=== PATIENT | male | born 1990 | race Hispanic/Latino ===

== ENCOUNTER 2018-03-01 05:34 | Emergency (ER) | payer SELFPAY ==
[2018-03-01 07:14] LABS: Absolute Lymphocytes (CBC) 1.6 K/uL (0.7-4.9); Absolute Monocytes 0.6 K/uL (0.1-1.3); Absolute Neutrophil 4.8 K/uL (1.8-8.0); Basophils % 0.7 % (0-1.3); Eosinophils % 10.9 % (0-4.4); Hematocrit 46.9 % (39.6-49.0); MCH 28.8 pg (27.0-35.0); MCV 86.3 fL (80-100); Monocytes % 7.2 % (3.3-12.3); RBC Red Blood Cell Count 5.43 M/uL (4.33-5.43)
[2018-03-01 07:29] LABS: Bicarbonate 29 mEq/L (21-31); Glucose Level 98 mg/dL (65-120); Sodium Level 139 mEq/L (135-145)
[2018-03-01 07:30] LABS: BUN Blood Urea Nitrogen 17 mg/dL (6-20)
[2018-03-01 07:40] LABS: CKMB Creatine Kinase MB 2.4 ng/ml (0.3-4.0)
--- NOTE | 2018-03-01 07:54 | RAD REPORT ---
EXAM DESCRIPTION: CT - Head Brain Wo Cont - 03/01/2018 7:23 am CLINICAL HISTORY: Left arm numbness COMPARISON: None. TECHNIQUE: Computed axial tomography of the head was obtained. IV contrast was not requested. All CT scans are performed using dose optimization technique as appropriate and may include automated exposure control or mA/KV adjustment according to patient size. FINDINGS: An intracranial bleed is not seen . The ventricles are normal in caliber. No extra-axial fluid collection is noted. Fluid within the sinuses/ mastoids is not seen. IMPRESSION: No acute intracranial abnormality is seen. If patient's symptoms persist MRI of the bra in would be recommended.
--- NOTE | 2018-03-01 08:21 | ER ---
Nurse's Notes [facility] Name: Demond Rodriguez Age: 27 yrs Sex: Male : 1990 Arrival Date: 03/01/2018 Time: 05:36 Bed 2 Private MD: Diagnosis: Palpitations Presentation: 03/01 05:52 Presenting complaint: Patient states: Reports that at 0100 this morning, he started ea having palpitations, facial numbness and left arm numbness. Transition of care: patient was not received from another setting of care. Onset of symptoms was March 01, 2018. Care prior to arrival: None. 05:52 Method Of Arrival: Ambulatory ea 05:52 Acuity: JOSH 3 ea Triage Assessment: 05:52 General: Appears in no apparent distress. Behavior is calm, cooperative, appropriate ea for age. Pain: Denies pain. EENT: No signs and/or symptoms were reported regarding the EENT system. Neuro: Level of Consciousness is awake, alert, obeys commands, Oriented to person, place, time, situation. Cardiovascular: Heart tones present Patient's skin is warm and dry. Respiratory: Airway is patent Respiratory effort is even, unlabored, Respiratory pattern is regular, symmetrical, Breath sounds are clear bilaterally. GI: No signs and/or symptoms were reported involving the gastrointestinal system. : No signs and/or symptoms were reported regarding the genitourinary system. Derm: Skin is pink, warm \T\ dry. Musculoskeletal: Range of motion: intact in all extremities. Historical: - Allergies: 06:00 No Known Allergies; ea - Home Meds: 06:00 None [Active]; ea - PMHx: 06:00 None; ea - PSHx: 06:00 None; ea - Immunization history:: Adult Immunizations up to date. - Social history:: Smoking status: Patient/guardian denies using tobacco. Screenin:07 Abuse screen: Denies threats or abuse. Nutritional screening: No deficits noted. ea Tuberculosis screening: No symptoms or risk factors identified. Fall Risk None identified. Assessment: 06:50 Reassessment: Patient and/or family updated on plan of care and expected duration. Pain ea level reassessed. Patient is alert, oriented x 3, equal unlabored respirations, skin warm/dry/pink. 07:10 Reassessment: Urinal provided and patient encouraged to provide urine sample. Patient ae1 states feeling better. Vital Signs: 05:52 BP 118 / 76; Pulse 72; Resp 18; Temp 97.9(O); Pulse Ox 99% on R/A; Weight 97.52 kg (R); ea Height 5 ft. 8 in. (172.72 cm); Pain 0/10; 07:11 BP 121 / 72; Pulse 63; Resp 18; Pulse Ox 98% on R/A; ae1 08:15 BP 115 / 73; Pulse 69; Pulse Ox 98% on R/A; ae1 05:52 Body Mass Index 32.69 (97.52 kg, 172.72 cm) ea ED Course: 05:36 Patient arrived in ED. am2 05:52 Patient has correct armband on for positive identification. Bed in low position. Call ea light in reach. Side rails up X2. Pulse ox on. NIBP on. 05:52 Arm band placed on left wrist. ea 05:57 Lila Infante, JO ANN is Primary Nurse. ea 06:00 Triage completed. ea 06:11 Patient maintains SpO2 saturation greater than 95% on room air. ea 06:17 Liz Carr FNP-C is PHCP. kb 06:17 Ned Damon MD is Attending Physician. kb 06:46 X-ray completed. Portable x-ray completed in exam room. Patient tolerated procedure la2 well. 06:51 Inserted saline lock: 20 gauge in right antecubital area, using aseptic technique. ea Blood collected. 06:52 XRAY Chest (1 view) In Process Unspecified. EDMS 07:08 Patient moved back from CT. ae1 07:24 CT Head Brain wo Cont In Process Unspecified. EDMS 08:04 UDS Sent. ae1 08:30 No provider procedures requiring assistance completed. IV discontinued, intact, ae1 bleeding controlled, No redness/swelling at site. Pressure dressing applied. Administered Medications: No medications were administered Outcome: 08:20 Discharge ordered by . kb 08:30 Discharged to home ambulatory. ae1 08:30 Condition: stable 08:30 Discharge instructions given to patient, Instructed on discharge instructions, follow up and referral plans. Demonstrated understanding of instructions. 08:31 Patient left the ED. ae1 Signatures: Dispatcher [employer] EDMS Liz Crar FNP-C FNP-Ckb Elliott, Andrea RN RN ae1 Joanna Ferris am2 Lila Infante, RN RN ea Mary Francis2 Corrections: (The following items were deleted from the chart) 06:37 06:37 Pain: marie salazar
--- NOTE | 2018-03-01 08:21 | EDPHYS ---
Physician Documentation [facility] Name: Demond Rodriguez Age: 27 yrs Sex: Male : 1990 Arrival Date: 03/01/2018 Time: 05:36 Bed 2 Private MD: ED Physician Ned Damon HPI: 03/01 06:23 This 27 yrs old Male presents to ER via Ambulatory with complaints of Numbness kb Of Face, Numbness Of Arm, palpitations. 06:23 The patient presents with a history of "beating hard". Context: The symptoms occur kb during sleep. Onset: The symptoms/episode began/occurred at 01:00. Duration: The patient or guardian reports a single episode, that is still ongoing. Modifying factors: The symptoms are aggravated by nothing. The symptoms are alleviated by nothing. Associated signs and symptoms: Pertinent positives: facial numbness, left arm numbness. Severity of symptoms: At their worst the symptoms were mild moderate in the emergency department the symptoms are unchanged. The patient has experienced a previous episode, approximately 2 years ago, and the symptoms today are exactly the same. The patient has not recently seen a physician. . Historical: - Allergies: 06:00 No Known Allergies; ea - Home Meds: 06:00 None [Active]; ea - PMHx: 06:00 None; ea - PSHx: 06:00 None; ea - Immunization history:: Adult Immunizations up to date. - Social history:: Smoking status: Patient/guardian denies using tobacco. ROS: 06:23 Constitutional: Negative for fever, chills, and weight loss, Eyes: Negative for injury, kb pain, redness, and discharge, ENT: Negative for injury, pain, and discharge, Neck: Negative for injury, pain, and swelling, Respiratory: Negative for shortness of breath, cough, wheezing, and pleuritic chest pain, Abdomen/GI: Negative for abdominal pain, nausea, vomiting, diarrhea, and constipation, Back: Negative for injury and pain, : Negative for injury, bleeding, discharge, and swelling, MS/Extremity: Negative for injury and deformity, Skin: Negative for injury, rash, and discoloration. 06:23 Cardiovascular: Positive for palpitations, Negative for chest pain, edema, orthopnea, paroxysmal nocturnal dyspnea. 06:23 Neuro: Positive for numbness, Negative for altered mental status, dizziness, gait disturbance, headache, hearing loss, loss of consciousness, seizure activity, speech changes, syncope, near syncope, tingling, tinnitus, tremor, visual changes, weakness. Exam: 06:23 Constitutional: This is a well developed, well nourished patient who is awake, alert, kb and in no acute distress. Head/Face: Normocephalic, atraumatic. Eyes: Pupils equal round and reactive to light, extra-ocular motions intact. Lids and lashes normal. Conjunctiva and sclera are non-icteric and not injected. Cornea within normal limits. Periorbital areas with no swelling, redness, or edema. ENT: Nares patent. No nasal discharge, no septal abnormalities noted. Tympanic membranes are normal and external auditory canals are clear. Oropharynx with no redness, swelling, or masses, exudates, or evidence of obstruction, uvula midline. Mucous membranes moist. Neck: Trachea midline, no thyromegaly or masses palpated, and no cervical lymphadenopathy. Supple, full range of motion without nuchal rigidity, or vertebral point tenderness. No Meningismus. Chest/axilla: Normal chest wall appearance and motion. Nontender with no deformity. No lesions are appreciated. Cardiovascular: Regular rate and rhythm with a normal S1 and S2. No gallops, murmurs, or rubs. Normal PMI, no JVD. No pulse deficits. Respiratory: Lungs have equal breath sounds bilaterally, clear to auscultation and percussion. No rales, rhonchi or wheezes noted. No increased work of breathing, no retractions or nasal flaring. Abdomen/GI: Soft, non-tender, with normal bowel sounds. No distension or tympany. No guarding or rebound. No evidence of tenderness throughout. Back: No spinal tenderness. No costovertebral tenderness. Full range of motion. Skin: Warm, dry with normal turgor. Normal color with no rashes, no lesions, and no evidence of cellulitis. MS/ Extremity: Pulses equal, no cyanosis. Neurovascular intact. Full, normal range of motion. Neuro: Awake and alert, GCS 15, oriented to person, place, time, and situation. Cranial nerves II-XII grossly intact. Motor strength 5/5 in all extremities. Sensory grossly intact. Cerebellar exam normal. Normal gait. Vital Signs: 05:52 BP 118 / 76; Pulse 72; Resp 18; Temp 97.9(O); Pulse Ox 99% on R/A; Weight 97.52 kg (R); ea Height 5 ft. 8 in. (172.72 cm); Pain 0/10; 07:11 BP 121 / 72; Pulse 63; Resp 18; Pulse Ox 98% on R/A; ae1 08:15 BP 115 / 73; Pulse 69; Pulse Ox 98% on R/A; ae1 05:52 Body Mass Index 32.69 (97.52 kg, 172.72 cm) ea MDM: 06:17 Patient medically screened. kb 06:23 Data reviewed: vital signs, nurses notes. Data interpreted: Pulse oximetry: on room air kb is 99 %. Interpretation: normal. 08:20 Counseling: I had a detailed discussion with the patient and/or guardian regarding: the kb historical points, exam findings, and any diagnostic results supporting the discharge/admit diagnosis, lab results, radiology results, the need for outpatient follow up, a network security analyst, a family practitioner, to return to the emergency department if symptoms worsen or persist or if there are any questions or concerns that arise at home. 08:20 ED course: Pt reports his symptoms have resolved and he is feeling better. . kb 03/01 06:23 Order name: Magnesium; Complete Time: 07:46 kb 03/01 06:23 Order name: Basic Metabolic Panel; Complete Time: 07:46 kb 03/01 06:23 Order name: BNP; Complete Time: 07:46 kb 03/01 06:23 Order name: CBC with Diff; Complete Time: 07:14 kb 03/01 06:23 Order name: Ckmb; Complete Time: 07:46 kb 03/01 06:23 Order name: Troponin (emerg Dept Use Only); Complete Time: 07:46 kb 03/01 06:18 Order name: EKG; Complete Time: 06:18 kb 03/01 06:18 Order name: EKG - Nurse/Tech; Complete Time: 06:50 kb 03/01 06:18 Order name: CT Head Brain wo Cont; Complete Time: 07:56 kb 03/01 06:23 Order name: XRAY Chest (1 view) kb 03/01 06:23 Order name: Cardiac monitoring; Complete Time: 06:36 kb 03/01 06:23 Order name: IV Saline Lock; Complete Time: 06:49 kb 03/01 07:58 Order name: UDS kb 03/01 08:06 Order name: Urine Dipstick--Ancillary (enter results) ms 03/01 06:23 Order name: Labs collected and sent; Complete Time: 06:49 kb 03/01 06:23 Order name: O2 Per Protocol; Complete Time: 06:37 kb 03/01 06:23 Order name: O2 Sat Monitoring; Complete Time: 06:37 kb 03/01 06:23 Order name: Urine Dipstick-Ancillary (obtain specimen); Complete Time: 08:04 kb Administered Medications: No medications were administered Disposition: 21:14 Co-signature as Attending Physician, Ned Damon MD. james Disposition: 03/01/18 08:20 Discharged to Home. Impression: Palpitations. - Condition is Stable. - Discharge Instructions: Palpitations, [id number]. - Medication Reconciliation Form, Thank You Letter, Antibiotic Education, Prescription Opioid Use form. - Follow up: Emergency Department; When: As needed; Reason: Worsening of condition. Follow up: Private Physician; When: 2 - 3 days; Reason: Recheck today's complaints, Continuance of care, Re-evaluation by your physician. Signatures: Dispatcher [employer] Liz Rodriguez, CITY CONTROLLER-C CITY CONTROLLER-Ned Vasquez MD MD pkJavier Bridges, RN RN ae1 Lila Infante RN RN ea
[2018-03-01 08:51] LABS: Barbiturates NEGATIVE; Benzodiazepines NEGATIVE; Cocaine POSITIVE; METHAMPHETAM NEGATIVE; Opiates NEGATIVE; Phencyclidine NEGATIVE; THC Cannibis NEGATIVE
[2018-03-01 08:56] LABS: Urine Blood NEGATIVE (NEG); Urine Glucose NEGATIVE (NEG); Urine Protein NEGATIVE (NEG)
--- NOTE | 2018-03-01 10:56 | RAD REPORT ---
EXAM DESCRIPTION: [place] Single View03/01/2018 6:58 am CLINICAL HISTORY: Chest pain/palpitation COMPARISON: none FINDINGS: The lungs appear clear of acute infiltrate. The heart is normal size IMPRESSION: No acute abnormalities displayed
--- NOTE | 2018-03-02 08:49 | EKG ---
Test Date: 2018-03-01 Test Time: 06:46:35 Bottle Blowing Machine Tender: JULIO MEASUREMENT RESULTS: Intervals: Rate: 68 IN: 128 QRSD: 80 QT: 362 QTc: 384 [place]: P: 77 IN: 128 QRS: 70 T: 42 INTERPRETIVE STATEMENTS: Normal sinus rhythm Normal ECG No previous ECG available for comparison Electronically Signed On 03-02-18 08:48:33 CDT by Mario Pearl
== END 2018-03-01 08:31 | disposition home or self-care (01) ==
LOC: ER 05:34
DX: R00.2 Palpitations (principal)
CPT/HCPCS: 36415; 70450; 71045; 80048; 80307; 81003; 82553; 83735; 83880; 84484; 85025; 93005; 99285